=== PATIENT | female | born 1950 | race Caucasian/White ===

== ENCOUNTER 2017-08-31 09:41 | Emergency (ER) | END 2017-08-31 12:30 | disposition home or self-care (01) | DX: S01.111A Laceration without foreign body of right eyelid and periocular area, initial encounter (principal); W01.0XXA Fall on same level from slipping, tripping and stumbling without subsequent striking against object, initial encounter; Y92.811 Bus as the place of occurrence of the external cause ==

== ENCOUNTER 2017-09-02 10:13 | Emergency (ER) | payer MEDICARE, OTHER ==
[~2017-09-02] VITALS: Ht 154.9 cm; Wt 85.9 kg
[2017-09-02 10:17] VITALS: Ht 154.9 cm; Wt 85.9 kg
--- NOTE | 2017-09-02 12:09 | ERD ---
ER Documentation Chief Complaint Chief Complaint PT here for 48 hour wound L eye brown LAC HPI 66-year-old female patient with no significant past medical history presents to the ED complaining of a right eyebrow laceration sustained 2 days ago as she had a mechanical fall as she was running to catch the bus. Denies any loss of consciousness. Denies any chest pain, shortness of breath, nausea, vomiting, diarrhea, abdominal pain, headache, dizziness, weakness. Denies any eye pain, blurred vision, vision loss. ROS All systems reviewed and are negative except as per history of present illness. Allergies Allergies: Coded Allergies: ibuprofen (Verified Allergy, Intermediate, 08/31/17) PMhx/Soc Hx Alcohol Use: Yes (social) Hx Substance Use: No Hx Tobacco Use: No Physical Exam Vitals Vital Signs Date Time Temp Pulse Resp B/P Pulse Ox O2 Delivery O2 Flow Rate FiO2 09/02/17 10:17 98.1 70 16 139/80 99 Physical Exam Const: [id number], well-nourished. In no acute distress. Head: Atraumatic, normocephalic. 2.6 cm laceration with 4 sutures noted - linear and vertical. No dehiscence. No farias sign. Ecchymosis surrounding the right orbital structures. No tenderness palpation of the bilateral orbital structures. No crepitus. Eyes: Normal Conjunctiva without injection. No purulent discharge. PERRLA. EOMI ENT: Normal external ear. Ear canal without erythema. Tympanic membrane pearly casas without effusion or bulging. Nasal canal clear with normal turbinates. Moist oropharynx without tonsillar exudates. Non-erythematous pharynx. Uvula midline. No drooling. No trismus. Neck: No cervical midline tenderness. Full range of motion. No meningismus. No cervical lymphadenopathy. No JVD. Resp: Clear to auscultation bilaterally. No wheezing, rhonchi, rales, or crackles. No accessory muscle use. No retractions. Cardio: Regular rate and rhythm. No murmurs, rubs or gallops. Skin: Normal skin turgor. No petechiae or rashes Back: No midline tenderness. No CVA tenderness. Ext: No cyanosis, or edema. Distal pulses intact bilaterally. Neur: Awake and alert. Normal gait. Normal coordination. Cranial Nerves II- VII intact. Normal finger to nose. Muscle strength 5/5. Sensation intact. Psych: Normal Mood and Affect Procedures/MDM 66-year-old female patient with no significant past medical history presents to the ED complaining of a wound check for a right eyebrow laceration with 4 sutures noted. Patient is afebrile nontoxic appearing. Patient has normal vital signs. Patient gave consent to perform laceration repair. Low suspicion for periorbital fracture, subarachnoid hemorrhage, acute glaucoma, meningitis, carotid dissection, brain aneurysm, TIA, stroke, subdural hematoma, epidural hematoma, or other emergent conditions. Patient is neurologically intact. Low suspicion for neurologic injury, periorbital fracture, extraocular muscle entrapment. Patient is appropriate for outpatient follow up. Suture removal in 3 days - follow up with PCP. Instructed patient to return to the ED sooner for any worsening symptoms. Patient's questions were answered. Patient understood and agreed with discharge plan. Patient is discharged stable. Departure Diagnosis: Primary Impression: Encounter for wound re-check Condition: Stable Patient Instructions: Wound Check, Lac F/U (No Infection) Referrals: [facility] YOU HAVE RECEIVED A MEDICAL SCREENING EXAM AND THE RESULTS INDICATE THAT YOU DO NOT HAVE A CONDITION THAT REQUIRES URGENT TREATMENT IN THE EMERGENCY DEPARTMENT. FURTHER EVALUATION AND TREATMENT OF YOUR CONDITION CAN WAIT UNTIL YOU ARE SEEN IN YOUR DOCTORS OFFICE WITHIN THE NEXT 1-2 DAYS. IT IS YOUR RESPONSIBILITY TO MAKE AN APPOINTMENT FOR FOLOW-UP CARE. IF YOU HAVE A PRIMARY DOCTOR --you should call your primary doctor and schedule an appointment IF YOU DO NOT HAVE A PRIMARY DOCTOR YOU CAN CALL OUR PHYSICIAN REFERRAL HOTLINE AT IF YOU CAN NOT AFFORD TO SEE A PHYSICIAN YOU CAN CHOSE FROM THE FOLLOWING [facility]ICS [facility] [address] [facility] [facility]. [facility] [address] [facility] [address] [facility] [address] [facility] [address] [facility]. [facility]. [address] [facility]. [facility] YOU HAVE RECEIVED A MEDICAL SCREENING EXAM AND THE RESULTS INDICATE THAT YOU DO NOT HAVE A CONDITION THAT REQUIRES URGENT TREATMENT IN THE EMERGENCY DEPARTMENT. FURTHER EVALUATION AND TREATMENT OF YOUR CONDITION CAN WAIT UNTIL YOU ARE SEEN IN YOUR DOCTORS OFFICE WITHIN THE NEXT 1-2 DAYS. IT IS YOUR RESPONSIBILITY TO MAKE AN APPOINTMENT FOR FOLOW-UP CARE. IF YOU HAVE A PRIMARY DOCTOR --you should call your primary doctor and schedule and appointment IF YOU DO NOT HAVE A PRIMARY DOCTOR YOU CAN CALL OUR PHYSICIAN REFERRAL HOTLINE AT . IF YOU CAN NOT AFFORD TO SEE A PHYSICIAN YOU CAN CHOSE FROM THE FOLLOWING [facility] INSTITUTIONS: [facility] [address] [place] [address] [facility] [address] [place] [address] [facility] [address] [place] [address] [facility] URGENT CARE/SPECIALTIES Additional Instructions: Follow up with your physician to remove the stitches in 3 days. See the doctor sooner or return here if your condition worsens before your appointment time - worsening headache, dizziness, vision loss, hurts to move eyes, vomiting, fever, chills, etc. ANAHI NICK PA-C Sep 02, 2017 12:09 ANAHI NICK PA-C Sep 02, 2017 12:09
== END 2017-09-02 11:35 | disposition home or self-care (01) ==
LOC: FTE 10:13
DX: Z48.01 Encounter for change or removal of surgical wound dressing (principal)
CPT/HCPCS: 99281